=== PATIENT | male | born 1990 | race Caucasian/White ===

== ENCOUNTER 2020-11-13 11:37 | Outpatient (REF) | payer MEDICARE, MEDICAID, SELFPAY ==
--- NOTE | 2020-11-14 12:37 | MHC.AU.P13 ---
Adult Audiological Evaluation Date of Visit: 11/13/20 Apprentice Funeral Director Used: Not Applicable Reason for Appointment: Audiologic re-evaluation to determine possible change in hearing ability. Mother reports Erasmo does not typically wear his hearing aid when at home. Previous Hearing Test Results: 08/28/2019 [facility] Right ear - Normal hearing thresholds through all frequencies with the exception of a mild loss at 4000 Hz. Left ear - Moderately-severe low frequency, rising to mild to moderate at 6571-3393 Hz, and dropping to a severe high frequency conductive hearing loss. Ear History: History of Ear Wax Buildup: Both Ears Medical History: Medical History: Down Syndrome Hearing Instrument History- Right Ear: Form Presser: None Hearing Instrument History- Left Ear: Form Presser: CareDox Model: Media Machines 50-M312 Serial Number: [id number] Battery Size: 312 Warranty: 2017 Loss and Damage Warranty: Dispensed By: [facility] Date of Fittin12/11/2014 Otoscopy: Right Ear: Partially occluding cerumen removed prior to testing today Left Ear: Completely occluding cerumen removed prior to testing today Tympanometry: Tympanometry performed due to: To determine if cerumen blockage is fully occluding canal(s) Right Ear: Normal Middle Ear System (Type A) Left Ear: Normal Middle Ear System (Type A) Hearing Evaluation: Transducer(s) Used: Insert Earphones Bone Conduction Method: Conventional Audiometry Stimuli Used: Pure Tones Right Ear: Description of Hearing: Normal hearing thresholds 250-8000 Hz Left Ear: Description of Hearing: Moderate low frequency, rising to mild/moderate conductive loss, then dropping to a profound loss at 8000 Hz Speech Recognition Threshold (SRT): Not performed at today's visit. Word Discrimination: Not performed at today's visit. Comparison: Compared to most recent evaluation: A 20 dB decrease is noted for the left ear at 8000 Hz. All remaining frequencies for both ears are stable Recommendations: Audiological re-evaluation in one year. Hearing aid(s) reprogrammed with updated test results. Erasmo reports significantly improved sound quality of the left aid following cerumen removal and re-programming of the hearing aid. If further adjustments are needed, another appointment may be scheduled Diagnosis: Primary Diagnosis: H90.12 Conductive HL, Unilateral Left Ear, W/Unrestricted Contralateral Services Performed: Pure Tone- Air & Bone (CPT 59667) Tympanometry (CPT 10288) Signature: Provider: Chey Carranza, CCC-A
== END 2020-11-13 11:38 | disposition home or self-care (01) ==
LOC: HO.SH 11:37
PROVIDERS: Visit Provider Pediatrics
DX: H90.12 Conductive hearing loss, unilateral, left ear, with unrestricted hearing on the contralateral side (principal)
CPT/HCPCS: 92553; 92567

== ENCOUNTER 2020-11-13 12:47 | Outpatient (REF) | payer SELFPAY | END 2020-11-13 12:48 | disposition home or self-care (01) | LOC: HO.HAP 12:47 | PROVIDERS: Visit Provider Pediatrics | DX: H90.12 Conductive hearing loss, unilateral, left ear, with unrestricted hearing on the contralateral side (principal) | CPT/HCPCS: 92700 ==

== ENCOUNTER 2021-11-06 11:39 | Outpatient (REF) | payer MEDICARE, MEDICAID, SELFPAY ==
--- NOTE | 2021-11-12 16:03 | MHC.AU.AHA ---
Adult Audiological Evaluation Date of Visit: 11/06/21 Requirements Manager Used: Not Applicable Reason for Appointment: Audiologic re-evaluation to determine possible change in hearing ability. Smooth has a history left ear conductive hearing loss. Mother suspects Smooth is not hearing as well recently. Previous Hearing Test Results: 10/2020 [facility] Right ear - Normal hearing thresholds 250-8000 Hz Left Ear - Mild to severe conductive hearing loss. Ear History: Ear Infections in Childhood: Both Ears History of Ear Wax Buildup: Both Ears Previous Ear Surgery: Pressure Equalization Tubes Medical History: Medical History: Down Syndrome Medication List: Metronidazole and Ketoconazole topical creams Hearing Instrument History- Right Ear: Stores Naval: None Hearing Instrument History- Left Ear: Stores Naval: Vquence Model: Secure Outcomes 50-M312 Serial Number: [id number] Battery Size: 312 Warranty: 2017 Dispensed By: [facility] Date of Fittin12/11/2014 Otoscopy: Right Ear: Small amount of non-occluding cerumen Left Ear: Mostly occluding cerumen removed today prior to testing. Tympanometry: Not performed at today's visit as all testing since 2012 has indicated normal middle ear function bilaterally. Hearing Evaluation: Transducer(s) Used: Insert Earphones Bone Conduction Method: Conventional Audiometry Stimuli Used: Pure Tones Right Ear: Description of Hearing: Normal hearing thresholds 250-8000 Hz. Left Ear: Description of Hearing: Mild to severe conductive hearing loss. Speech Recognition Threshold (SRT): Method Used: Monitored Live Voice Stimuli Used: Spondee Words Right Ear: 5 dB HL Left Ear: 30 dB HL Word Discrimination: Method: Recorded Lists Word Lists Used: NU-6 Right Ear: 100% at 50 dB HL Left Ear: 100% at 75 dB HL Comparison: Compared to the most recent evaluation: Hearing is stable. Interpretation of Results: The perception of decreased hearing ability for the left ear was likely related to the significant amount of cerumen in the ear canal. Following cerumen removal and cleaning of the hearing aid, Smooth reported improved hearing ability. Recommendations: Audiological re-evaluation in one year. Will send a reminder card. Hearing aid maintenance performed today. Diagnosis: Primary Diagnosis: H90.12 ConductiveHL, Unilateral Left Ear, W/Unrestricted Contralateral Services Performed: Comprehensive Audiological Evaluation (CPT 43567) Tympanometry (CPT 05072) Signature: Provider: Chey Carranza, ARNOLD-A
== END 2021-11-06 11:40 | disposition home or self-care (01) ==
LOC: HO.SH 11:39
PROVIDERS: Visit Provider Internal Medicine Sports Medicine
DX: Z01.118 Encounter for examination of ears and hearing with other abnormal findings (principal); H90.12 Conductive hearing loss, unilateral, left ear, with unrestricted hearing on the contralateral side
CPT/HCPCS: 92557; 92567

== ENCOUNTER 2022-07-03 15:00 | Outpatient (REF) | payer MEDICARE, MEDICAID, SELFPAY | END 2022-07-03 15:01 | disposition home or self-care (01) | LOC: HO.HAP 15:00 | PROVIDERS: Visit Provider Pediatrics | DX: Z46.1 Encounter for fitting and adjustment of hearing aid (principal); H90.12 Conductive hearing loss, unilateral, left ear, with unrestricted hearing on the contralateral side | CPT/HCPCS: 92592 ==

== ENCOUNTER 2022-07-03 16:04 | Outpatient (REF) | payer SELFPAY | END 2022-07-03 16:05 | disposition home or self-care (01) | LOC: HO.HAP 16:04 | PROVIDERS: Visit Provider Pediatrics | DX: Z46.1 Encounter for fitting and adjustment of hearing aid (principal); H90.12 Conductive hearing loss, unilateral, left ear, with unrestricted hearing on the contralateral side | CPT/HCPCS: 92700 ==

== ENCOUNTER 2022-12-04 12:41 | Outpatient (REF) | payer MEDICARE, MEDICAID, SELFPAY | END 2022-12-04 12:42 | disposition home or self-care (01) | LOC: HO.HAP 12:41 | PROVIDERS: Visit Provider Pediatrics | DX: Z46.1 Encounter for fitting and adjustment of hearing aid (principal); H90.12 Conductive hearing loss, unilateral, left ear, with unrestricted hearing on the contralateral side | CPT/HCPCS: 92592; 92594; 99499 ==

== ENCOUNTER 2023-02-08 10:58 | Outpatient (REF) | payer MEDICARE, MEDICAID, SELFPAY | END 2023-02-08 10:59 | disposition home or self-care (01) | LOC: HO.SH 10:58 | PROVIDERS: Visit Provider Pediatrics | DX: Z01.118 Encounter for examination of ears and hearing with other abnormal findings (principal); H90.12 Conductive hearing loss, unilateral, left ear, with unrestricted hearing on the contralateral side | CPT/HCPCS: 92557; 92567; 92592; 99499 ==

== ENCOUNTER 2024-05-26 10:08 | Outpatient (REF) | payer MEDICARE, MEDICAID, SELFPAY ==
--- NOTE | 2024-05-26 15:39 | MHC.AU.MED ---
Medical Clearance for Hearing Instrumentation Date: 05/26/24 Patient Name: Smooth Kwon Date of : 1990 Primary Care Provider: Referring Provider: Jules Green MD We have seen your patient on 05/26/24 and have determined that they are a candidate for amplification (See accompanying report). Specifically, they would benefit from: Hearing aid use in the left ear There is a statute that addresses Medical Evaluation Requirements prior to fitting a patient with a hearing aid. According to [place] statute 265 CMR:6.03(1), (a) General. Except as provided in 265 CMR 6.03(1)(b), a hearing aide technician shall not sell a hearing aid unless the prospective user has presented to the hearing aide technician a written statement signed by a licensed physician that states that the patient's hearing loss has been medically evaluated and the patient may be considered a candidate for a hearing aid. The medical evaluation must have taken place within the preceding six months. Please note: Due to the [place] Statute referenced above, we cannot accept a signature other than that of a licensed physician. REFRIGERATING ENGINEER HEAD and PA signatures cannot be accepted. I am in agreement with the above recommendation. There is no medical contraindication for hearing instrumentation. Physician Signature Date Physician Name (Printed)
== END 2024-05-26 10:09 | disposition home or self-care (01) ==
LOC: HO.SH 10:08
PROVIDERS: Visit Provider Internal Medicine Sports Medicine
DX: Z01.118 Encounter for examination of ears and hearing with other abnormal findings (principal); Z46.1 Encounter for fitting and adjustment of hearing aid; H90.12 Conductive hearing loss, unilateral, left ear, with unrestricted hearing on the contralateral side
CPT/HCPCS: 92557; 92590; 92592; 99499; V5266; V5275

== ENCOUNTER 2024-08-04 09:35 | Outpatient (REF) | payer MEDICARE, MEDICAID, SELFPAY | END 2024-08-04 09:36 | disposition home or self-care (01) | LOC: HO.HAP 09:35 | PROVIDERS: Visit Provider Internal Medicine Sports Medicine | DX: Z46.1 Encounter for fitting and adjustment of hearing aid (principal); H90.42 Sensorineural hearing loss, unilateral, left ear, with unrestricted hearing on the contralateral side | CPT/HCPCS: V5011; V5241; V5257; V5264 ==

== ENCOUNTER 2024-10-13 09:37 | Outpatient (REF) | payer MEDICARE, MEDICAID, SELFPAY | END 2024-10-13 09:38 | disposition home or self-care (01) | LOC: HO.HAP 09:37 | PROVIDERS: Visit Provider Pediatrics | DX: Z13.89 Encounter for screening for other disorder (principal) ==

== ENCOUNTER 2024-11-24 09:30 | Outpatient (REF) | payer MEDICARE, MEDICAID, SELFPAY | END 2024-11-24 09:31 | disposition home or self-care (01) | LOC: HO.HAP 09:30 | PROVIDERS: PCP Pediatrics; Visit Provider Internal Medicine Sports Medicine | DX: Z13.89 Encounter for screening for other disorder (principal) ==

== ENCOUNTER 2025-01-19 09:34 | Outpatient (REF) | payer MEDICARE, MEDICAID, SELFPAY | END 2025-01-19 09:35 | disposition home or self-care (01) | LOC: HO.HAP 09:34 | PROVIDERS: Visit Provider Pediatrics | DX: Z13.89 Encounter for screening for other disorder (principal) ==

== ENCOUNTER 2025-03-14 13:38 | Outpatient (REF) | payer MEDICARE, MEDICAID, SELFPAY | END 2025-03-14 13:39 | disposition home or self-care (01) | LOC: HO.HAP 13:38 | PROVIDERS: Visit Provider Pediatrics | DX: Z13.89 Encounter for screening for other disorder (principal) ==

== ENCOUNTER 2025-03-27 09:14 | Outpatient (REF) | payer MEDICARE, MEDICAID, SELFPAY ==
--- NOTE | 2025-03-27 16:50 | MHC.AU.HA3 ---
Hearing Instrument Follow-Up Date of Visit: 03/27/25 Right Ear: Make, Model, Color, Serial Number: [id number] Left Ear: Make, Model, Color, Serial Number: Phonak Rosieeo L70 R, chestnut S#[id number] Batch Unit Treater Repair Warranty: 07/22/2027 Batch Unit Treater Loss and Damage Warranty: USED 08/2024 [facility] Service Plan: 08/04/2025 Battery Size: Rechargeable Manager Nicu/Slim Tube: #0 M Earmold/Dome/CShell/SlimTip: Soft slimtip S#[id number] Warranty 12/27/2024 Type of Wax Guard: Cerustop Dispensed By: [facility] Date of Fittin08/04/24 Follow-Up Summary: Two hearing aids and charger tester dropped off with concerns of hearing aids not squeaking as loud as usual in hand when Marie is checking them. Also concern about charging notes sometimes they flash green instead of yellow. Found wax guards clogged. Cleaned all, replaced wax guards, listening check positive. Tested charging. All working normally. Noted to Marie that aids will still flash green at 80% charge so the light color may just depend on length of wear and listening situations that day. Noted that a non Phonak charging cable and block were in use. Requested replacements from [employer] as this is noted to be of importance by the manufacturere and informed Marie of this. Recommendations: Recommendations: Patient will be contacted when materials have arrived. Recommendations (Other): Come to last picker all once the new charger tester cable and plug are in. Diagnosis Code(s): Primary Diagnosis: H90.12 ConductiveHL, Unilateral Left Ear, W/Unrestricted Contralateral Signature: Provider: Markie Davis, [facility]
== END 2025-03-27 09:15 | disposition home or self-care (01) ==
LOC: HO.HAP 09:14
DX: Z13.89 Encounter for screening for other disorder (principal)

== ENCOUNTER 2025-03-29 10:59 | Outpatient (REF) | payer MEDICARE, MEDICAID, SELFPAY | END 2025-03-29 11:00 | disposition home or self-care (01) | LOC: HO.SH 10:59 | DX: Z13.89 Encounter for screening for other disorder (principal) ==

== ENCOUNTER 2025-08-15 11:18 | Outpatient (REF) | payer MEDICARE, MEDICAID, SELFPAY ==
--- NOTE | 2025-08-15 12:33 | MHC.AU.HA3 ---
Hearing Instrument Follow-Up- Binaural Date of Visit: 08/15/25 Left Ear: Make, Model, Color, Serial Number: Julia Audeo L70-R SN: [id number] Color: [place] Photographic Technician Repair Warranty: 07/22/2027 Photographic Technician Loss and Damage Warranty: USED 08/2024 [facility] Service Plan: 08/04/2025 Battery Size: Rechargeable Hot Knife Cutter/Slim Tube: 0M Earmold/Dome/CShell/SlimTip: Slimtip SN: [id number] Warranty 12/27/2024 Type of Wax Guard: Cerustop Dispensed By: [facility] Date of Fittin08/04/2024 Follow-Up Summary: Accompanied by Leo florian who reported Smooth is not hearing well, like a deer in headlights when you talk to him. Otoscopy revealed occluding cerumen, bilaterally. Recommended to PCP or Urgent Care for removal. Also wanted HAs checked. Had two left Audeo L70-R hearing aids, one that was previously lost then found. Newer c-shell missing gasket to hold in wax guard - replaced. Cleaned both HAs (1) and EMs (1). Replaced wax guards (1). 50565 x3. Vacuumed microphones. Ran through dehumidifier. Listening check demonstrated HAs amplifying clearly. Enabled VC at dad's request, instructed on use. Recommended updated hearing test following wax removal, dad will request order from PCP. Recommendations: Hearing instrument follow-up or maintenance as needed. Please contact our clinic with any questions or concerns. Diagnosis Code(s): Primary Diagnosis: H90.12 ConductiveHL, Unilateral Left Ear, W/Unrestricted Contralateral Signature: Provider: Markie Smith, [facility]
== END 2025-08-15 11:19 | disposition home or self-care (01) ==
LOC: HO.HAP 11:18
PROVIDERS: Visit Provider Pediatrics
DX: H90.12 Conductive hearing loss, unilateral, left ear, with unrestricted hearing on the contralateral side (principal)
CPT/HCPCS: 92592; 99499